=== PATIENT | female | born 1980 | race African-American/Black ===

== ENCOUNTER → 2021-02-22 | Outpatient (CLI) | payer BC ==
[2021-02-22 16:53] LABS: BASOPHILS % 0.8 % (0.0-2.0); EOSINOPHILS % 0.3 % (0.0-5.0); HEMATOCRIT. 39.1 % (36.0-48.0); LYMPHOCYTES % 18.6 % (20.0-50.0); MEAN CORPUSCULAR HEMOGLOBIN 28.1 pg (28.0-32.0); MEAN CORPUSCULAR VOLUME 84.7 fL (81.0-99.0); MEAN PLATELET VOLUME 7.3 fl (7.4-10.4); MONOCYTES % 9.2 % (2.0-8.0); NEUTROPHILS % 71.1 % (40.0-76.0); PLATELET 282 x1000/uL (130-400); RED BLOOD CELL COUNT 4.62 mill/uL (4.2-5.4); RED CELL DISTRIBUTION WIDTH 13.3 % (11.6-14.6)
[2021-02-22 16:55] LABS: CLARITY URINE CLEAR (CLEAR); COLOR URINE YELLOW (YELLOW); KETONES URINE NEGATIVE (NEGATIVE); LEUKOCYTE ESTERASE URINE TRACE (NEGATIVE); NITRITE URINE NEGATIVE (NEGATIVE); OCCULT BLOOD URINE 1+ (NEGATIVE); PH URINE 7.5 (4.5-8.0); PROTEIN URINE NEGATIVE (NEGATIVE); SPECIFIC GRAVITY URINE 1.021 (1.005-1.030)
[2021-02-22 18:09] LABS: CHLORIDE 103 mEq/L (98-107)
[2021-02-22 18:14] LABS: C REACTIVE PROTEIN QUANT 4.4 mg/L (0.0-3.0)
[2021-02-22 18:17] LABS: CREATINE KINASE 396 IU/L (26-192)
[2021-02-24 09:09] LABS: ANTI-DNA DOUBLE STRANDED QUANT < 1 IU/mL (0-9); ANTI-NUCLEAR ANTIBODIES DIRECT Positive (Negative); G6PD RBC 4.75 x10E6/uL (3.77-5.28); SJOGRENS ANTI SS-A < 0.2 AI (0.0-0.9); SJOGRENS ANTI SS-B < 0.2 AI (0.0-0.9); SMITH ABS < 0.2 AI (0.0-0.9); VITAMIN D 25-OH 17.6 ng/mL (30.0-100.0)
[2021-02-25 15:10] LABS: ANGIOTENSION CONVERTING ENZYME 42 U/L (14-82); G6PD QUANTITATIVE 301 (127-427)
[2021-02-25 17:07] LABS: CYC CITRULLINATED PEP IgG/IgA 7 units (0-19)
[2021-02-26 10:09] LABS: DRVVT LA 32.3 sec (0.0-47.0); LUPUS ANTICOAG INTERPRETATION Comment: (.); PTT-LA 34.5 sec (0.0-51.9)
[2021-02-26 15:10] LABS: ALDOLASE 7.6 U/L (3.3-10.3)
[2021-02-26 17:06] LABS: ANTI-CARDIOLIPIN AB IGA < 9 APL U/mL (0-11); ANTI-CARDIOLIPIN AB IGG < 9 GPL U/mL (0-14); ANTI-CARDIOLIPIN AB IGM 15 MPL U/mL (0-12)
[2021-02-26 19:09] LABS: ANTI-MYELOPEROXIDASE AB < 9.0 U/mL (0.0-9.0); ANTI-PROTEINASE 3 ABS < 3.5 U/mL (0.0-3.5)
[2021-02-28 15:06] LABS: ATYPICAL P-ANCA <1:20 titer (Neg:<1:20); CYTOPLASMIC C-ANCA <1:20 titer (Neg:<1:20); PERINUCLEAR P-ANCA <1:20 titer (Neg:<1:20)
== END | disposition home or self-care (01) ==
LOC: LAB 15:49
PROVIDERS: ATTEND Internal Medicine Rheumatology
DX: M06.4 Inflammatory polyarthropathy (principal); M32.10 Systemic lupus erythematosus, organ or system involvement unspecified; I77.6 Arteritis, unspecified
CPT/HCPCS: 36415; 80053; 81003; 82085; 82164; 82306; 82550; 82955; 83520; 84436; 84550; 85025; 85041; 85613; 85651; 85732; 86038; 86140; 86147; 86160; 86200; 86225; 86226; 86235; 86256; 86430; 86592; 86780

== ENCOUNTER → 2021-02-26 | Outpatient (CLI) | payer BC ==
[2021-02-26 12:36] LABS: BASOPHILS % 0.7 % (0.0-2.0); HEMATOCRIT. 38.9 % (36.0-48.0); HEMOGLOBIN. 12.9 g/dL (12.0-16.0); LYMPHOCYTES % 20.7 % (20.0-50.0); MEAN CORPUSCULAR HEMOGLOBIN 28.2 pg (28.0-32.0); MEAN PLATELET VOLUME 7.5 fl (7.4-10.4); MONOCYTES % 8.9 % (2.0-8.0); NEUTROPHILS % 68.7 % (40.0-76.0); PLATELET 237 x1000/uL (130-400); RED BLOOD CELL COUNT 4.57 mill/uL (4.2-5.4); RED CELL DISTRIBUTION WIDTH 13.2 % (11.6-14.6)
[2021-02-26 12:38] LABS: CHLORIDE 109 mEq/L (98-107)
[2021-02-26 12:45] LABS: LDL CHOLESTEROL 101 mg/dL (5-100)
[2021-02-26 12:46] LABS: HDL CHOLESTEROL 72 mg/dL (40-59)
[2021-02-26 13:23] LABS: PROTHROMBIN TIME 10.8 sec (9.6-11.0)
== END | disposition home or self-care (01) ==
LOC: LAB 11:53
PROVIDERS: ATTEND Specialist
DX: I10 Essential (primary) hypertension (principal)
CPT/HCPCS: 36415; 80053; 80061; 83036; 84436; 84443; 85025

== ENCOUNTER → 2021-04-07 | Outpatient (CLI) | payer BC | END | disposition home or self-care (01) | LOC: LAB 11:55 | PROVIDERS: ATTEND Internal Medicine Rheumatology | DX: M06.4 Inflammatory polyarthropathy (principal); M32.10 Systemic lupus erythematosus, organ or system involvement unspecified; I77.6 Arteritis, unspecified | CPT/HCPCS: 86592; 86780 ==